=== PATIENT | male | born 1985 | race Two or more races ===

== ENCOUNTER 2017-10-26 17:48 | Emergency (ER) | payer SELFPAY ==
[~2017-10-26] VITALS: Ht 185.4 cm; Wt 83.9 kg
--- NOTE | 2017-10-26 18:10 | NUR ---
BURNING SENSATION IN THROAT X 1 WEEK. NAD NOTED. SEEN BY MD FOR EVAL. VSS. SAFETY AND COMFORT MEASURES PROVIDED. WILL MONITOR.
[2017-10-26] MEDS ORDERED: FAMOTIDINE (20 MG) 20 MG TABLET ONE (18:12)
[2017-10-26] MEDS ORDERED: MAG HYDROX/AL HYDROX/SIMETH 30 ML UDC ONE (18:12)
[2017-10-26 18:19] LABS: BASOPHILS % (AUTO) 0.4 % (0.0-2.0); HEMATOCRIT 45 % (39-51); HEMOGLOBIN 15.2 g/dL (13.5-17.5); LYMPHOCYTES % (AUTO) 35.5 % (20.0-44.0); MEAN CORPUSCULAR HGB CONC 34 g/dl (31.0-36.0); MEAN CORPUSCULAR VOLUME 92 fL (80-96); MONOCYTES # (AUTO) 0.9 /CMM (0.1-1.30); MONOCYTES % (AUTO) 10.5 % (2.0-12.0); NEUTROPHILS # (AUTO) 4.3 /CMM (1.8-8.9); NEUTROPHILS % (AUTO) 51.6 % (43.0-81.0); PLATELET COUNT (AUTO) 255 /CMM (150-450); RDW COEFFICIENT OF VARIATION 12.4 (11.5-15.0); RED BLOOD CELL COUNT(AUTO) 4.92 MIL/uL (4.5-6.0); WHITE BLOOD COUNT (AUTO) 8.4 K/uL (4.3-11.0)
[2017-10-26] MEDS ORDERED: FAMOTIDINE (20 MG) 20 MG TABLET PO ONE (18:30)
[2017-10-26] MEDS ORDERED: MAG HYDROX/AL HYDROX/SIMETH 30 ML UDC PO ONE (18:30)
[2017-10-26 18:49] LABS: CALCIUM, SERUM 9.3 mg/dL (8.5-10.1); CREATININE 0.8 mg/dL (0.6-1.3)
[2017-10-26 18:55] LABS: ALBUMIN 3.9 g/dL (3.4-5.0); BILIRUBIN,TOTAL 0.2 mg/dL (0.2-1.0); TOTAL PROTEIN, SERUM 8.1 g/dL (6.4-8.2)
--- NOTE | 2017-10-26 19:16 | NUR ---
REPORT RECEIVED FROM BRENNEN ALVARENGA FOR REKHA.
[2017-10-26] MEDS ORDERED: LIDOCAINE VISCOUS 2% UD 15 ML UDC ONE (19:19)
[2017-10-26] MEDS ORDERED: LIDOCAINE VISCOUS 2% UD 15 ML UDC MM ONE (19:30)
--- NOTE | 2017-10-26 19:59 | NUR ---
Patient discharged to home in stable condition. Written and verbal after care instructions given. Patient verbalizes understanding of instruction. Patient ambulatory with a steady gait.
[2017-10-26 20:00] VITALS: BP 123/78
== END 2017-10-26 20:00 | disposition home or self-care (01) ==
LOC: ER 17:55
DX: K21.9 Gastro-esophageal reflux disease without esophagitis (principal); F17.200 Nicotine dependence, unspecified, uncomplicated
CPT/HCPCS: 36415; 80053-TC; 83690-TC; 85025-TC; A4606; Z7610